=== PATIENT | male | born 1940 | race Caucasian/White ===

== ENCOUNTER 2018-11-20 06:54 | Inpatient (IN) | payer MEDICARE, OTHER ==
[~2018-11-20] VITALS: Ht 190.5 cm; Wt 134.3 kg
[2018-11-20] MEDS ORDERED: FISH OIL 1,001000 M2 PO (07:01)
[2018-11-20] MEDS ORDERED: PRINIVIL20 MG PO (07:01)
[2018-11-20] MEDS ORDERED: RED YEAST RICE600 MG PO (07:02)
[2018-11-20] MEDS ORDERED: ASPIR 8181 MG PO (07:02)
[2018-11-20] MEDS ORDERED: ZINC50 M2 PO (07:02)
[2018-11-20 07:03] VITALS: BP 171/86
[2018-11-20] MEDS ORDERED: CENTRUM SILVER1 EAC2 PO (07:03)
[2018-11-20 07:09] LABS: URINE BILIRUBIN NEGATIVE (Negative); URINE BLOOD TRACE (Negative); URINE CLARITY CLEAR; URINE COLOR YELLOW; URINE GLUCOSE-RANDOM NEGATIVE (Negative); URINE KETONES 1+ (Negative); URINE LEUKOCYTES-REFLEX NEGATIVE (Negative); URINE NITRITE-REFLEX NEGATIVE (Negative); URINE PROTEIN NEGATIVE (Negative); URINE SPECIFIC GRAVITY 1.015 (1.005-1.030); URINE UROBILINOGEN 0.2 E.U./dl (0.2-1.0)
[2018-11-20 07:36] LABS: ABSOLUTE BASOPHILS 0.1 thou/uL (0.0-0.2); ABSOLUTE EOSINOPHILS 0.3 thou/uL (0.0-0.7); ABSOLUTE LYMPHOCYTES 1.4 thou/uL (0.8-5.3); ABSOLUTE MONOCYTES 0.7 thou/uL (0.0-1.2); ABSOLUTE NEUTROPHILS 10.1 thou/uL (1.6-8.1); BASOPHILS 0.6 %; EOSINOPHILS 2.4 %; HEMOGLOBIN 15.1 gm/dL (14.0-18.0); MCH 29.5 pg (26.0-34.0); MCHC 33.5 g/dL (28.0-37.0); MONOCYTES 5.5 %; MPV 7.5 fl. (7.2-11.1); NUCLEATED RBCS 0 /100WBC; PLATELET COUNT* 259 thou/uL (150-400); POLYS 80.5 %; RBC 5.11 mil/uL (4.50-6.00); RDW-CV 13.6 % (10.5-14.5); WBC 12.5 thou/uL (4.0-11.0)
[2018-11-20 08:42] LABS: ANION GAP 7 mmol/L (7-16); BUN 10 mg/dL (7-18); CHLORIDE 95 mmol/L (98-107); CO2 32 mmol/L (21-32); CREATININE 0.8 mg/dL (0.6-1.3); GLUCOSE 188 mg/dL (70-99); SODIUM 134 mmol/L (136-145)
[2018-11-20 08:49] LABS: ALBUMIN 3.4 g/dL (3.4-5.0); ALKALINE PHOSPHATASE 101 U/L (46-116); LIPASE 175 U/L (73-393); SGOT 65 U/L (15-37); SGPT 91 U/L (30-65); TOTAL PROTEIN 7.5 g/dL (6.4-8.2); TROPONIN-I LEVEL <0.06 ng/mL (<0.06)
--- NOTE | 2018-11-20 09:17 | NUR ---
HUMA NOTIFIED UPON PT RETURN FROM CT. PT CONNECTED TO MONITOR AND O2
--- NOTE | 2018-11-20 10:24 | EKG ---
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: : 1940 Requested By: Yrn Pleitez Order Number: [id number] MD: Sebastian Chery Measurements Intervals [place] Rate: 84 P: 8 OK: 199 QRS: -22 QRSD: 92 T: 6 QT: 355 QTc: 420 Interpretive Statements Sinus rhythm Probable left atrial enlargement Left ventricular hypertrophy Inferior infarct, old Anterior Q waves, possibly due to LVH No previous ECG available for comparison Electronically Signed On 11-20-2018 10:24:43 [employer] by Sebastian Chery [email or web address] <ELECTRONICALLY SIGNED> By: Sebastian hCery MD, FACC 11/20/18 1024 0732 0732 Sebastian Chery MD, [facility] /EPI
[2018-11-20 10:30] VITALS: BP 171/86
[2018-11-20 10:53] VITALS: BP 165/87
--- NOTE | 2018-11-20 13:24 | NUR ---
PATIENT ARRIVED ON UNIT FROM ER AT 1030. COMPLETED ADMISSION ASSESSMENT AND HISTORY. HUNG FLUIDS. PATIENT DENIES PAIN AT THIS TIME. PATIENT WILL HAVE BRING UP ADVANCED DIRECTIVE PAPERWORK. EDUCATED PATIENT TO ROOM, CALL LIGHT, AND FALL RISKS. PATIENT VERBALIZED UNDERSTANDING. COMPLETED HOURLY ROUNDING, CALL LIGHT DIEGOIHN REACH.
[2018-11-20 15:34] VITALS: BP 151/82
--- NOTE | 2018-11-20 17:58 | NUR ---
PATIENT REMAINED ALERT AND ORIENTED X'S 4. VITAL SIGNS AND SPO2 STABLE. IV CLEAN FLUIDS INFUSING. PAIN WELL CONTROLLED WITH TYLENOL. TOLERATED CLEAR LIQUID DIET, NO NAUSEA AND VOMITING. COMPLETED HOURLY ROUNDING. CALL LIGHT WITHIN REACH. WILL CONTINUE TO MONITOR.
[2018-11-20 20:10] VITALS: BP 113/48
[2018-11-21 04:02] VITALS: BP 126/63
[2018-11-21 04:06] LABS: HEMATOCRIT 41.9 % (42.0-52.0); HEMOGLOBIN 13.9 gm/dL (14.0-18.0); MCH 29.4 pg (26.0-34.0); MCHC 33.2 g/dL (28.0-37.0); MCV 88.8 fL (80.0-100.0); MPV 7.1 fl. (7.2-11.1); NUCLEATED RBCS 0 /100WBC; PLATELET COUNT* 218 thou/uL (150-400); RBC 4.72 mil/uL (4.50-6.00); RDW-CV 13.9 % (10.5-14.5); WBC 14.4 thou/uL (4.0-11.0)
[2018-11-21 04:15] LABS: CALCIUM 8.6 mg/dL (8.5-10.1); CREATININE 0.9 mg/dL (0.6-1.3)
--- NOTE | 2018-11-21 05:24 | NUR ---
pt remained alert and oriented this shift. pt c/o pain and tylenol given as ordered. pt current diet order is regular for breakfast, however unsure what surgery plans for patient as npo diet order was made and surgery left no note. fall risk precautions in place. hourly rounding completed. will continue to monitor.
[2018-11-21 05:41] LABS: ABSOLUTE EOSINOPHILS 0.6 thou/uL (0.0-0.7); ABSOLUTE LYMPHOCYTES 1.3 thou/uL (0.8-5.3); ABSOLUTE MONOCYTES 0.6 thou/uL (0.0-1.2); ANISOCYTOSIS 1+; PLATELET ESTIMATE ADEQUATE; POIKILOCYTOSIS 1+
[2018-11-21 07:55] VITALS: BP 144/68
--- NOTE | 2018-11-21 12:47 | NUR ---
INITIAL ASSESSMENT: Pt evaluated for d/c planning needs. Reviewed chart and spoke with nurse and pt. Pt is alert and oriented. Pt lives with and was independent with ADL's prior to admission to the hospital. Pt plans on returning home on d/c from hospital. Will remain available to assist as needed.
[2018-11-21 17:01] VITALS: BP 142/70
--- NOTE | 2018-11-21 18:40 | NUR ---
ALERT AND ORIENTED X4. UP AD GABBIE IN ROOM. IV X2 PATENT AND SALINE LOCKED. PAIN BEING MANAGED WITH PO MEDICATION. DENIES NAUSEA. TOLERATING DIET. RN TRIED TITRATING OFF OXYGEN TODAY, PATIENT KEPT DROPPING INTO THE 80'S. CONTINUES TO BE ON 3L O2 AT THIS TIME AT 95%. VSS ON 3L O2. HOURLY ROUNDS HAVE BEEN MAINTAINED THROUGHOUT SHIFT. CALL LIGHT IS WITHIN REACH. NURSING WILL CONTINUE TO MONITOR.
--- NOTE | 2018-11-21 19:00 | NUR ---
RN REVIEWED AND AGREES WITH STUDENT NURSES CHARTING.
[2018-11-21 20:30] VITALS: BP 138/87
--- NOTE | 2018-11-22 06:10 | NUR ---
DEWAYNE HAS SLEPT WELL THROUGHOUT THE NIGHT. VSS ON 3L 02 VIA NASAL CANNULA. TYLENOL GIVEN FOR PAIN. IV IN RIGHT FOREARM-SL. PATIENT INSTRUCTED TO USE CALL LIGHT WHEN NEEDING ASSISTANCE. HOURLY ROUNDS MADE. WILL CONTINUE WITH PLAN OF CARE AND NURSING TO MONITOR.
[2018-11-22 08:05] VITALS: BP 147/71
[2018-11-22 10:30] LABS: ABSOLUTE LYMPHOCYTES 0.4 thou/uL (0.8-5.3); ABSOLUTE MONOCYTES 0.1 thou/uL (0.0-1.2); ABSOLUTE NEUTROPHILS 13.6 thou/uL (1.6-8.1); BASOPHILS 0.2 %; HEMATOCRIT 42.7 % (42.0-52.0); LYMPHOCYTES 3.1 %; MCH 29.5 pg (26.0-34.0); MCHC 32.7 g/dL (28.0-37.0); MCV 90.3 fL (80.0-100.0); MPV 7.8 fl. (7.2-11.1); NUCLEATED RBCS 0 /100WBC; PLATELET COUNT* 240 thou/uL (150-400); POLYS 95.7 %; RBC 4.73 mil/uL (4.50-6.00); RDW-CV 13.8 % (10.5-14.5); WBC 14.2 thou/uL (4.0-11.0)
[2018-11-22 10:36] LABS: CALCIUM 8.6 mg/dL (8.5-10.1); POTASSIUM 4.4 mmol/L (3.5-5.1)
--- NOTE | 2018-11-22 17:44 | NUR ---
PT REMAINED ALERT AND ORIENTED THIS SHIFT. PT IS ON 3 LITERS OF O2, UNABLE TO TITRATE DOWN, SAT AT 95%, ON ROOM AIR HE DESATS TO 80'S. PULOMONOLGY CONSULTED. IV LASIX ORDERED FOR 3 DOSES. PT AT FIRST DECLINED LASIX BUT HAD AGREED TO THE THREE DOSES. PT REFUSED TO ACCEPT ANY INUSLIN. FALL RISK PRECAUTIONS IN PLACE. HOURLY ROUNDING COMPLETED. WILL CONTINUE TO MONITOR.
[2018-11-22 20:00] VITALS: BP 132/64
[2018-11-23 02:12] LABS: GLYCOHEMOGLOBIN (HGB A1C) 8.4 % (4.8-5.6)
[2018-11-23 03:52] LABS: ABSOLUTE BASOPHILS 0.1 thou/uL (0.0-0.2); ABSOLUTE LYMPHOCYTES 0.6 thou/uL (0.8-5.3); ABSOLUTE MONOCYTES 0.3 thou/uL (0.0-1.2); ABSOLUTE NEUTROPHILS 11.4 thou/uL (1.6-8.1); BASOPHILS 0.9 %; HEMOGLOBIN 13.3 gm/dL (14.0-18.0); LYMPHOCYTES 4.5 %; MCH 29.8 pg (26.0-34.0); MCHC 33.3 g/dL (28.0-37.0); MCV 89.7 fL (80.0-100.0); MONOCYTES 2.8 %; MPV 8.1 fl. (7.2-11.1); NUCLEATED RBCS 0 /100WBC; PLATELET COUNT* 235 thou/uL (150-400); POLYS 91.8 %; RBC 4.46 mil/uL (4.50-6.00); RDW-CV 13.9 % (10.5-14.5); WBC 12.4 thou/uL (4.0-11.0)
[2018-11-23 04:15] LABS: CALCIUM 8.6 mg/dL (8.5-10.1); CREATININE 0.9 mg/dL (0.6-1.3); POTASSIUM 4.4 mmol/L (3.5-5.1)
--- NOTE | 2018-11-23 04:47 | NUR ---
PT REMAINED A&Ox4 DURING SHIFT. VITALS STABLE. RT DECREASED OX FROM 3L TO 2L, TOLERATED AT 97%. GLUCOSE WAS 319 AT BEDTIME, DENIED INSULIN. PAIN CONTROLLED WITH TYLENOL. IV R AC PATENT, SL. PT UP AD GABBIE. CALL LIGHT WITHIN REACH. HOURLY ROUNDING COMPLETE. WILL CONTINUE TO MONITOR.
[2018-11-23 08:00] VITALS: BP 153/82
--- NOTE | 2018-11-23 13:45 | CON ---
[address] [address] CONSULTATION Name: HARSHA NEWTON Room: [address] IN M.R.#: [id number] Admission: 11/20/18 Attend Phys: Doc Shahid MD Discharge: Date of : 42 Report #: [id number] THIS REPORT FOR: //name// CC: Doc Vega DATE OF SERVICE: 11/22/2018 REQUESTING PHYSICIAN: Dr. Shahid. INDICATION FOR CONSULTATION: Hypoxia/shortness of breath. HISTORY OF PRESENT ILLNESS: This is a 78-year-old gentleman with past medical history as mentioned below. He reports that he is a lifetime nonsmoker. The patient, however, does state that he has been sick for the last 6 weeks or so and has been having what he describes as a cold. When asked directly what symptoms that he has been having, he says that he has been short of breath, has been coughing, has been bringing up small amounts of white sputum, at times has had nasal discharge as well. Although swelling of lower extremities is not a complaint that he brought up initially, when asked directly he does report that he has had swelling of lower extremities for the last several weeks as well. The patient subsequently developed acute epigastric pain and presented to this hospital 2 days ago. He is suspected of having cholecystitis; however, due to his pulmonary status it was decided to optimize his pulmonary status first and consider surgery for cholecystitis later. At this time, the patient is on 3 liters nasal cannula, maintaining O2 saturation in the low 90s. His O2 saturation is noted to be in the mid 80s on room air. He continues to desaturate whenever oxygen is removed. Note that he was not on oxygen prior to this admission. He reports that he does have disturbed sleep at night. He sleeps on his sides and he does take daytime naps. REVIEW OF SYSTEMS: For 12 points is negative except as mentioned above. PAST MEDICAL HISTORY: Hypertension, hyperlipidemia. SOCIAL HISTORY: Lifetime nonsmoker. No known history of heavy alcohol use or illegal drug use. CURRENT MEDICATIONS: List in [employer] reviewed. HOME MEDICATIONS: List also in [employer] reviewed. PHYSICAL EXAMINATION: GENERAL: Alert, awake and oriented, does [place] [address] CONSULTATION Name: HARSHA NEWTON Room: [address]#: [id number] Admission: 11/20/18 Attend Phys: Doc Shahid MD Discharge: Date of : 42 Report #: [id number] this time. VITAL SIGNS: He is on 3 liters nasal cannula, maintaining O2 saturation in the low 90s, last recorded at 93%, blood pressure 147/71. His heart rate is 97, regular. His respiratory rate is 16. He is afebrile now with a temperature of 36.6. He did have a low grade fever of 37.6 yesterday. HEENT: There is no throat erythema. He has a narrow airway. NECK: Does not show raised JVP. CHEST: Minimal rales bilaterally at the bases. There are expiratory wheezes bilaterally. HEART: Regular. There is no murmur. ABDOMEN: Soft, nontender. EXTREMITIES: Lower extremities show 2+ edema bilaterally. There is no calf tenderness. LABORATORY DATA: The patient's CTA chest from yesterday is noted, it shows bilateral basilar fibrotic changes which are suspicious of usual interstitial pneumonitis. There is also a nodule, which is about 7 mm in size. The patient's CBC as well as chemistries are in [facility] and these are reviewed, significant hyperglycemia is noted. ASSESSMENT AND PLAN: 1. Hypoxia. The patient does have new onset oxygen needs. The full etiology of this remains to be defined. I do not see any significant infiltrates on the CT chest. It is, however, noted that he does have bilateral basilar scarring, which is suspicious of an interstitial lung disease. He does have some bronchospasm on exam. Also, he appears to be fluid overloaded. In addition, it appears that he has underlying obstructive sleep apnea. 2. Fluid overload. He does have edema. We will start Lasix. We will do an echo as well as venous Dopplers. 3. Bronchospasm. I do feel there is a component of this despite no previous history of obstructive lung disease. More Solu-Medrol is ordered. Continue DuoNeb. I note that his blood glucoses are elevated. I did cut down the Solu-Medrol dose, but it did continue. 4. Pulmonary fibrosis/possible interstitial lung disease. There are fibrotic changes at bilateral lung bases. These are suspicious for usual interstitial pneumonitis. This will need followup workup as an outpatient, which will include pulmonary function test. 5. Lung nodule. Will need followup CT chest. 6. Acute bronchitis. Despite lack of infiltrates there may be a component of acute bacterial bronchitis. The patient remains on Levaquin, which would cover. 7. Excessive daytime sleepiness. He had a sleep study many years ago. I recommend obtaining a repeat sleep study as an outpatient. I offered him BiPAP tonight, he declined. 8. Epigastric pain/possible acute cholecystitis. I would defer to the Surgery Service. [facility] [address] [place] [address] CONSULTATION Name: HARSHA NEWTON Room: [address] IN ..#: [id number] Admission: 11/20/18 Attend Phys: Doc Shahid MD Discharge: Date of : 42 Report #: [id number] Thanks for this consultation. <ELECTRONICALLY SIGNED> By: Efrain Infante MD 11/23/18 1345 1457 2108Aismael Infante MD /nt
[2018-11-23 16:20] VITALS: BP 141/86
--- NOTE | 2018-11-23 16:59 | NUR ---
ALERT AND ORIENTED X4. UP AD GABBIE IN ROOM. IV IS PATENT AND SALINE LOCKED. DENIES NEED FOR PAIN OR NAUSEA MEDICATION THIS SHIFT. TOLERATING DIET. PATIENT HAS BEEN ON ROOM AIR THROUGHOUT SHIFT, MONITORING CLOSELY. PATIENT IS ADAMITLY REFUSING INSULING THROUGHOUT SHIFT, DESPITE MULTIPLE ATTEMPTS OF EDUCATION. VSS ON ROOM AIR. HOURLY ROUNDS HAVE BEEN MAINTAINED THROUGHOUT SHIFT. CALL LIGHT IS WITHIN REACH. NURSING WILL CONTINUE TO MONITOR.
[2018-11-23 20:00] VITALS: BP 150/76
--- NOTE | 2018-11-24 04:40 | NUR ---
PT REMAINED A&Ox4 THROUGHOUT SHIFT. VITALS STABLE. OX 94% ON RA. UP AD GABBIE. IV R AC PATENT, SL. REFUSED HS INSULIN. OVERNIGHT PULSE OX/SLEEP STUDY STARTED AROUND 2300 AND WILL CONTINUE UNTIL 0600. CHEST XRAY ORDERED FOR AM, THEN POSSIBLE DC. CALL LIGHT WITHIN REACH. HOURLY ROUNDING COMPLETE. WILL CONTINUE TO MONITOR.
[2018-11-24 08:10] VITALS: BP 148/82
[2018-11-24 08:26] LABS: CALCIUM 9.1 mg/dL (8.5-10.1); MAGNESIUM 1.9 mg/dL (1.8-2.4); POTASSIUM 3.7 mmol/L (3.5-5.1)
[2018-11-24] MEDS ORDERED: VENTOLIN HFA 1818 GM INH (09:49)
[2018-11-24] MEDS ORDERED: PREDNISONE 10 M10 MG PO (09:51)
[2018-11-24] MEDS ORDERED: AUGMENTIN 875-1 EACH PO (09:52)
[2018-11-24 09:53] VITALS: BP 148/82
[2018-11-24] MEDS ORDERED: PROTONIX40 M1 PO (09:53)
[2018-11-24 09:54] VITALS: BP 148/82
[2018-11-24 09:57] VITALS: BP 148/82
[2018-11-24 09:59] VITALS: BP 148/82
--- NOTE | 2018-11-24 09:59 | NUR ---
CURING OVEN TENDER SPOKE TO THE PATIENT AND SPOUSE TO DISCUSS DISCHARGE PLANNING NEEDS AND HH AT D/C. PATIENT AND SPOUSE AGREEABLE TO HH AND INFORM THAT THEY WOULD LIKE HH WITH [facility]. CURING OVEN TENDER SPOKE TO [place] WITH [facility] TO INFORM OF THE REFERRAL, AND FAXED [facility] PATIENT'S FACEHSEET, H&P, AND D/C ORDERS. [facility] TO CONTACT THE PATIENT TO ARRANGE VISIT. PATIENT TO D/C HOME TODAY. CM WILL REMAIN AVIALABLE TO ASSIST AND FOLLOW NEEDED.
--- NOTE | 2018-11-24 18:06 | 2DMMODE ---
[place] [address] 2 D/M-MODE ECHOCARDIOGRAM Name: HARSHA NEWTON Room: [address] IN [facility]#: [id number] Admission: 11/20/18 Attend Phys: Doc Shahid, Discharge: Date of : 42 Date of Service: 11/24/18 1806 Report #: [id number] THIS REPORT FOR: //name// APPROVED REPORT Study performed: 11/24/2018 11:54:01 EXAM: Comprehensive 2D, Doppler, and color-flow Echocardiogram Patient Location: In-Patient Room #: [facility] Status: routine BSA: 2.59 HR: 89 bpm BP: 148/82 mmHg Other Information Study Quality: Good Indications Dyspnea 2D Dimensions IVSd: 12.26 (7-11mm) LVOT Diam: 21.99 (18-24mm) LVDd: 44.95 mm PWd: 11.78 (7-11mm) Ascending Ao: 33.93 (22-36mm) LVDs: 25.07 (25-40mm) Aortic Root: 29.08 mm Volumes Left Atrial Volume (Systole) LA ESV Index: 27.00 mL/m2 Aortic Valve AoV Peak Jose Guadalupe.: 1.53 m/s AO Peak Gr.: 9.41 mmHg LVOT Max P.04 mmHg AO Mean Gr.: 5.80 mmHg LVOT Mean P.82 mmHg LVOT Max V: 1.50 m/s AO V2 VTI: 31.72 cm LVOT Mean V: 1.02 m/s NITZA (VTI): 3.73 cm2 LVOT V1 VTI: 31.19 cm Mitral Valve E/A Ratio: 0.80 MV Decel. Time: 248.63 ms MV E Max Jose Guadalupe.: 0.95 m/s MV PHT: 72.10 [place] [address] 2 D/M-MODE ECHOCARDIOGRAM Name: HARSHA NEWTON Room: [address] IN .R.#: [id number] Admission: 11/20/18 Attend Phys: Doc Shahid, Discharge: Date of : 42 Date of Service: 11/24/18 1806 Report #: [id number] MVA (PHT): 3.05 cm2 TDI E/Lateral E': 11.88 E/Medial E': 11.88 Medial E' Jose Guadalupe.: 0.08 m/s Lateral E' Jose Guadalupe.: 0.08 m/s Pulmonary Valve PV Peak Jose Guadalupe.: 1.19 m/s PV Peak Gr.: 5.62 mmHg Tricuspid Valve RAP Estimate: 5.00 mmHg TR Peak Gr.: 29.98 mmHg RVSP: 34.98 mmHg PA Pressure: 34.98 mmHg Left Ventricle The left ventricle is normal size. There is normal LV segmental wall motion. Mild concentric left ventricular hypertrophy. Left ventricular systolic function is normal. LVEF is >70%. Grade I - abnormal relaxation pattern. Right Ventricle The right ventricle is normal size. The right ventricular systolic function is normal. Atria The left atrium size is normal. The right atrium size is normal. Aortic Valve The aortic valve is normal in structure. No aortic regurgitation is present. There is no aortic valvular stenosis. Mitral Valve There is mitral annular calcification. Mild mitral regurgitation. No evidence of mitral valve stenosis. Tricuspid Valve The tricuspid valve is normal in structure. Mild tricuspid regurgitation. Pulmonic Valve The pulmonary valve is normal in structure. Mild pulmonic [place] [address] 2 D/M-MODE ECHOCARDIOGRAM Name: HARSHA NEWTON Room: [address]#: [id number] Admission: 11/20/18 Attend Phys: Doc Shahid, Discharge: Date of : 42 Date of Service: 11/24/18 1806 Report #: [id number] The aortic root is normal in size. IVC is normal in size and collapses >50% with inspiration. Pericardium There is no pericardial effusion. <Conclusion> The left ventricle is normal size. Mild concentric left ventricular hypertrophy. Left ventricular systolic function is normal. LVEF is >70%. Grade I - abnormal relaxation pattern. Mild mitral regurgitation. There is mitral annular calcification. Mild tricuspid regurgitation. Mild pulmonic regurgitation. <ELECTRONICALLY SIGNED> By: Paul Ham MD, FACC 11/24/181805 05 05 Paul Ham MD, FACC /INF
--- NOTE | 2018-11-24 18:50 | NUR ---
PT GIVEN PRESCRIPTIONS, CARE NOTES, AND DISCHARGE INSTRUCTIONS. ECHO WAS COMPLETED AND WAS NEGATIVE. IV REMOVED. PT LEFT TO HOME WITH SPOUSE WALKING WITH NURSING STAFF. FALL RISK PRECAUTIONS IN PLACE. HOURLY ROUNDING COMPELTED.
[2018-11-26 15:11] LABS: ANTI-DNA SCREEN <1 IU/mL (0-9); ANTI-RNP <0.2 AI (0.0-0.9)
== END 2018-11-24 18:52 | disposition home health service (06) | DRG 177 ==
LOC: M.ERS 06:54 → M.ORTHSURG 09:50 → M.TBA-ER 09:50 → M.ORTHSURG 10:38
PROVIDERS: Emergency Medicine Emergency Medical Services; Internal Medicine Critical Care Medicine; ADMIT Internal Medicine
DX: J15.6 Pneumonia due to other Gram-negative bacteria (principal); J96.01 Acute respiratory failure with hypoxia; R65.11 Systemic inflammatory response syndrome (SIRS) of non-infectious origin with acute organ dysfunction; K81.0 Acute cholecystitis; I10 Essential (primary) hypertension; E78.5 Hyperlipidemia, unspecified; J98.01 Acute bronchospasm; J84.10 Pulmonary fibrosis, unspecified; G47.33 Obstructive sleep apnea (adult) (pediatric); R91.1 Solitary pulmonary nodule; E11.65 Type 2 diabetes mellitus with hyperglycemia; E66.9 Obesity, unspecified; Z68.37 Body mass index [BMI] 37.0-37.9, adult; Z79.82 Long term (current) use of aspirin; Z79.899 Other long term (current) drug therapy; Z88.8 Allergy status to other drugs, medicaments and biological substances; Z80.1 Family history of malignant neoplasm of trachea, bronchus and lung; Z83.3 Family history of diabetes mellitus

== ENCOUNTER 2019-04-13 14:43 | Emergency (ER) | payer MEDICARE, OTHER ==
[~2019-04-13] VITALS: Ht 193 cm; Wt 127.0 kg
[~2019-04-13 14:43] MED LIST: ASPIR 8181 MG PO; AUGMENTIN 875-1 EACH PO; CENTRUM SILVER1 EAC2 PO; FISH OIL 1,001000 M2 PO; PREDNISONE 10 M10 MG PO; PRINIVIL20 MG PO; PROTONIX40 M1 PO; RED YEAST RICE600 MG PO; VENTOLIN HFA 1818 GM INH; ZINC50 M2 PO
[2019-04-13] MEDS ORDERED: IBUPROFEN 600600 M1 PO (14:57)
[2019-04-13 16:13] VITALS: BP 160/78
== END 2019-04-13 16:13 | disposition home or self-care (01) ==
LOC: M.ERS 14:43
DX: S60.211A Contusion of right wrist, initial encounter (principal); I10 Essential (primary) hypertension; Z88.8 Allergy status to other drugs, medicaments and biological substances; W01.0XXA Fall on same level from slipping, tripping and stumbling without subsequent striking against object, initial encounter; Y93.89 Activity, other specified; Y92.89 Other specified places as the place of occurrence of the external cause; Y99.8 Other external cause status

== ENCOUNTER → 2019-06-22 | Outpatient (CLI) | payer MEDICARE, OTHER ==
[~2019-06-22] MED LIST changes: +IBUPROFEN 600600 M1 PO
[2019-06-22 09:49] LABS: CALCIUM 9.2 mg/dL (8.5-10.1); CREATININE 1.1 mg/dL (0.6-1.3); POTASSIUM 4.9 mmol/L (3.5-5.1)
== END ==
LOC: M.LAB 09:04
PROVIDERS: Nurse Practitioner
DX: I10 Essential (primary) hypertension (principal)

== ENCOUNTER 2020-03-14 19:47 | Inpatient (IN) | payer MEDICARE, OTHER ==
[~2020-03-14] VITALS: Ht 190.5 cm; Wt 127.0 kg
[2020-03-14 19:55] VITALS: BP 121/78
[2020-03-14 20:14] LABS: ABSOLUTE BASOPHILS 0.1 thou/uL (0.0-0.2); ABSOLUTE LYMPHOCYTES 1.8 thou/uL (0.8-5.3); ABSOLUTE MONOCYTES 0.5 thou/uL (0.0-1.2); ABSOLUTE NEUTROPHILS 7.5 thou/uL (1.6-8.1); BASOPHILS 0.8 %; EOSINOPHILS 0.2 %; HEMATOCRIT 46.9 % (42.0-52.0); HEMOGLOBIN 16.4 gm/dL (14.0-18.0); LYMPHOCYTES 17.9 %; MCH 30.2 pg (26.0-34.0); MCHC 34.9 g/dL (28.0-37.0); MCV 86.5 fL (80.0-100.0); MONOCYTES 5.2 %; MPV 8.1 fl. (7.2-11.1); NUCLEATED RBCS 0 /100WBC; PLATELET COUNT* 231 thou/uL (150-400); POLYS 75.9 %; RBC 5.42 mil/uL (4.50-6.00); RDW-CV 13.9 % (10.5-14.5); WBC 9.9 thou/uL (4.0-11.0)
[2020-03-14 20:25] LABS: INR 1.1
[2020-03-14 20:26] LABS: CALCIUM 8.8 mg/dL (8.5-10.1); CREATININE 0.8 mg/dL (0.6-1.3); POTASSIUM 3.6 mmol/L (3.5-5.1)
[2020-03-14 20:36] LABS: ALBUMIN 3.6 g/dL (3.4-5.0); MAGNESIUM 1.4 mg/dL (1.8-2.4); TOTAL BILIRUBIN 0.9 mg/dL (<0.1-1.0); TOTAL PROTEIN 7.6 g/dL (6.4-8.2)
[2020-03-14 20:52] LABS: BE 2.6 mmol/L (-2 to +3); PO2 63.3 mmHg (75.0-100.0); pH 7.376 (7.340-7.450)
[2020-03-14 20:56] LABS: PCO2 50.4 mmHg (35.0-45.0)
[2020-03-14 23:21] VITALS: BP 132/80
[2020-03-15 00:30] VITALS: BP 132/71
[2020-03-15 04:00] VITALS: BP 159/74
[2020-03-15 04:52] LABS: CALCIUM 8.1 mg/dL (8.5-10.1); POTASSIUM 3.7 mmol/L (3.5-5.1)
[2020-03-15 05:00] VITALS: BP 126/65
[2020-03-15 07:50] VITALS: BP 128/74
[2020-03-15 09:05] LABS: CHOLESTEROL 214 mg/dL (<200); HDL CHOLESTEROL 29 mg/dL (>40); LDL CHOLESTEROL 149 mg/dL (<100); SERUM ASSESSMENT Clear; TC:HDL 7.4 Ratio (Not establshd); TRIGLYCERIDE 180 mg/dL (<150); VLDL 36 mg/dL (<40)
[2020-03-15 12:00] VITALS: BP 111/72
--- NOTE | 2020-03-15 15:00 | NUR ---
CM spoke with Pt's via phone. Pt is normally active and independent. No DME. Hx of [facility]. No hx of SNF. states that Pt saw his inspector subassemblies last year and was recommended home o2, Pt declined at that time. and Pt aware that Pt may need o2 at dc, Pt currently on 4L. Per , Pt would agree to home o2 at dc if needed. Pt/ check his sats at home, states that Pt normally vascillates between 88-91%. Pt to have a stress today. Following for dc needs.
--- NOTE | 2020-03-15 15:27 | EKG ---
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 Support: RAJAT : 1940 Requested By: Maribell Dhillon Order Number: [id number] MD: Guillaume Melendez Measurements Intervals [place] Rate: 67 P: 15 RI: 218 QRS: -20 QRSD: 93 T: -73 QT: 395 QTc: 417 Interpretive Statements Sinus rhythm Borderline prolonged RI interval Left ventricular hypertrophy Inferior infarct, age indeterminate Compared to ECG 11/20/2018 07:32:35 Myocardial infarct finding still present Electronically Signed On 03-15-2020 15:25:41 CDT by Guillaume Melendez [email or web address] <ELECTRONICALLY SIGNED> By: Guillaume Melendez MD, [facility] 03/15/20 1525 2243 2243 Guillaume Melendez MD, [facility] /EPI
--- NOTE | 2020-03-15 15:27 | EKG ---
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: [place] : 1940 Requested By: Josiah Strauss Order Number: [id number] MD: Guillaume Melendez Measurements Intervals [place] Rate: 78 P: 38 NV: 210 QRS: -29 QRSD: 93 T: 12 QT: 378 QTc: 431 Interpretive Statements Sinus rhythm Probable left atrial enlargement Inferior infarct, old Compared to ECG 11/20/2018 07:32:35 Left ventricular hypertrophy no longer present Myocardial infarct finding still present Electronically Signed On 03-15-2020 15:25:25 CDT by Guillaume Melendez [email or web address] <ELECTRONICALLY SIGNED> By: Guillaume Melendez MD, [facility] 03/15/20 1525 55 55 Guillaume Melendez MD, [facility] /EPI
--- NOTE | 2020-03-15 15:28 | EKG ---
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 : 1940 Requested By: Josiah Strauss Order Number: [id number] Joe MD: Guillaume Melendez Measurements Intervals [place] Rate: 63 P: 49 OK: 232 QRS: -12 QRSD: 90 T: -1 QT: 428 QTc: 439 Interpretive Statements Sinus rhythm Prolonged [place] interval Inferior infarct, old Compared to ECG 11/20/2018 07:32:35 First degree AV block now present Left ventricular hypertrophy no longer present Myocardial infarct finding still present Electronically Signed On 03-15-2020 15:26:41 CDT by Guillaume Melendez [email or web address] <ELECTRONICALLY SIGNED> By: Guillaume Melendez MD, [facility] 03/15/20 1526 0458 0458 Guillaume Melendez MD, [facility] /EPI
[2020-03-15 16:00] VITALS: BP 130/73
--- NOTE | 2020-03-15 18:30 | NUR ---
ASSUMED CARE OF PATIENT AT APPROX 0730. ALERT AND ORIENTED X4. ASSESSMENT COMPLETED AND CHARTED. VSS ON 4 LITERS 02, TITRATED TO ROOM AIR WITH STABLE 02 SAT. FLUIDS INFUSED ORDERED. PATIENT COMPLAINED OF HEADACHE, ADDRESSED WITH FENTANYL THIS AM. NO OTHER COMPLAITS OF PAIN THIS SHIFT. PATIENT UP AD GABBIE IN THE ROOM. CALL LIGHT WITHIN REACH. HOURLY ROUNDS COMPLETED. WILL CONTINUE WITH PLAN OF CARE.
[2020-03-16] VITALS: BP 148/76
[2020-03-16 02:07] LABS: GLYCOHEMOGLOBIN (HGB A1C) 8.1 % (4.8-5.6)
[2020-03-16 04:00] VITALS: BP 126/72
[2020-03-16 04:48] LABS: HEMATOCRIT 41.3 % (42.0-52.0); MCH 29.8 pg (26.0-34.0); MCHC 34.5 g/dL (28.0-37.0); MCV 86.3 fL (80.0-100.0); MPV 7.9 fl. (7.2-11.1); RBC 4.78 mil/uL (4.50-6.00); RDW-CV 13.6 % (10.5-14.5); WBC 6.4 thou/uL (4.0-11.0)
[2020-03-16 05:05] LABS: HEMOGLOBIN 14.2 gm/dL (14.0-18.0)
[2020-03-16 05:07] LABS: ALBUMIN 2.8 g/dL (3.4-5.0); CALCIUM 7.8 mg/dL (8.5-10.1); CREATININE 0.8 mg/dL (0.6-1.3); POTASSIUM 3.5 mmol/L (3.5-5.1); TOTAL BILIRUBIN 0.5 mg/dL (<0.1-1.0); TOTAL PROTEIN 5.9 g/dL (6.4-8.2)
--- NOTE | 2020-03-16 05:11 | NUR ---
PATIENT HAS SLEPT WELL THROUGHOUT THE NIGHT. VSS ON 4L 02 VIA NASAL CANNULA. NO C/O PAIN. NO N/V. MEDICATIONS GIVEN ORDERED AND CHARTED. ASSESSMENT CHARTED. PATIENT IS UP AD-GABBIE. PATIENT HAS REMAINED NPO SINCE MIDNIGHT D/T SCHEDULED STRESS TEST TODAY. IV IN RIGHT AC-NS @ 100ML/HR. PATIENT INSTRUCTED TO USE CALL LIGHT WHEN NEEDING ASSISTANCE. HOURLY ROUNDS MADE. WILL CONTINUE WITH PLAN OF CARE AND NURSING TO MONITOR.
[2020-03-16 08:00] VITALS: BP 108/69
[2020-03-16 12:00] VITALS: BP 134/63
[2020-03-16 12:32] LABS: BE 0.4 mmol/L (-2 to +3); PCO2 47.9 mmHg (35.0-45.0); PO2 81.9 mmHg (75.0-100.0)
--- NOTE | 2020-03-16 13:28 | NUR ---
ASSUMED CARE OF PATIENT THIS AM AT 0730. PATIENT IS ALERT AND ORIENTED X 4. HE WAS NPO P MN FOR STRESS TEST. PATIENT TAKEN TO CARDIOLOGY FOR STRESS TEST AND RETURNED. IN TO ROUND. ORDERS WRITTEN FOR COVID TESTING AND PULMONARY CONSULT. PATIENT NEEDS TO BE TRANSFERRED TO COVID UNIT. IV FLUIDS DISCONTINUED. PATIENT RECIEVED CT SCAN PRIOR TO RETURNING TO THE UNIT. REPORT CALLED.
--- NOTE | 2020-03-16 14:49 | NUR ---
Per Dr, Pt hypoxic today, covid test ordered. Pt transferred to room 110
--- NOTE | 2020-03-16 16:30 | CARDNUC ---
[place] [address] CARDIAC NUCLEAR IMAGING REPORT Name: HARSHA NEWTON Room: [address] IN [facility]#: [id number] Admission: 03/14/20 Attend Phys: Estuardo Tanner Discharge: Date of : 42 Date of Service: 03/16/20 1628 Report #: [id number] THIS REPORT FOR: cc: Alfredo Corbin MD, Bruce D. MD Liston, Michael J. MD [facility] ~ APPROVED REPORT Study performed: 03/16/2020 08:50:40 Exam: Nuclear Stress Test Indication: Troponin elevation Patient Location: In-Patient Room #: 230 Stress Tech: Lynn Pratt Stress Nurse: Merry Crain RN Ht: 6 ft 3 in Wt: 280 lbs BSA: 2.53 m2 BMI: 34.99 Medical History Medical History: Hyperlipidemia, HTN, Diabetes Medications: lisinopril Allergies: niacin Cardiac Risk Factors: Age, HTN, Hyperlipidemia, DM Exercise History: Sedentary Stress Test Details Stress Test: Pharmacologic stress testing performed using 0.4 mg of regadenoson per 5 mL given IV over 10 seconds. Reason for pharmacologic stress test: physical limitation. HR Resting HR: 60 bpm Max Heart Rate (APMHR): 142 bpm Max HR Achieved: 75 bpm Target HR (85% APMHR): 120 bpm % of APMHR: 52 Recovery HR: 69 bpm BP Resting BP: 144/80 mmHg Max BP: 151/72 mmHg ECG Resting ECG: [place] [address] CARDIAC NUCLEAR IMAGING REPORT Name: HARSHA NEWTON Room: [address]#: [id number] Admission: 03/14/20 Attend Phys: Estuardo Tanner Discharge: Date of : 42 Date of Service: 03/16/20 1628 Report #: [id number] Stress ECG: Sinus Rhythm ST Change: None Arrhythmia: None Recovery ECG: Sinus Rhythm Recovery ST Change: None Recovery Arrhythmia: None Clinical Reason for Termination: Completed protocol The patient tolerated Lexiscan infusion without significant cardiac symptoms. Nurse Comments pt has unsteady gait and is not abale to walk on treadmill Stress ECG Conclusion The baseline twelve-lead EKG shows sinus rhythm without significant ST segment or T wave abnormalities. EKGs obtained during and post Lexiscan infusion show sinus rhythm with no significant ST segment or T wave changes when compared to baseline. NM EXAM: Myocardial Perfusion REST/STRESS Imaging Protocol: Rest Tc-99m/Stress Tc-99m 2 days Resting Data Rest SPECT myocardial perfusion imaging was performed in supine position 30 minutes following the intravenous injection of 32.7 mCi of Tc-99m Sestamibi. Time of rest injection: 14:10 Date: 03/15/2020 The images were gated to evaluate regional wall motion and calculate left ventricular ejection fraction. Administration Route: IV Administration Site: Right AC Pharmacologic Stress Pharmacologic stress test was performed by injecting Regadenoson 0.4 mg IV push followed by the intravenous injection of 32.7 mCi of Tc-99m Sestamibi. Time of stress injection: 09:00 Date: 03/16/2020 Administration Route: IV Administration Site: Right AC Heart Rate at time of stress injection: 75 bpm. Gated Stress SPECT was performed 40 minutes after stress injection. The images were gated to evaluate regional wall motion and calculate left [place] [address] CARDIAC NUCLEAR IMAGING REPORT Name: HARSHA NEWTON Room: [address]#: [id number] Admission: 03/14/20 Attend Phys: Estuardo Tanner Discharge: Date of : 42 Date of Service: 03/16/20 1628 Report #: [id number] Study Quality Study: Good Artifact: No artifact Study Data At rest, the left ventricular ejection fraction was 70%.. Post stress, the left ventricular ejection was 76%.. TID = 0.93. Perfusion Perfusion studies obtained at rest and post Lexiscan stress showed uniform uptake of the radioisotope throughout the myocardium. There were no defects to suggest infarct or ischemia. Wall Motion Normal left ventricular wall motion. Nuclear Conclusion ECG Findings: negative for ischemia Clinical Findings: negative for ischemia Nuclear Findings: negative for ischemia Exercise Capacity: not assessed Left Ventricular Function: normal Risk Study: low Myocardial perfusion images show no defect to suggest infarct or ischemia. Left ventricular systolic function is normal on gated studies. This is a low risk study. <Conclusion> The baseline twelve-lead EKG shows sinus rhythm without significant ST segment or T wave abnormalities. EKGs obtained during and post Lexiscan infusion show sinus rhythm with no significant ST segment or T wave changes when compared to baseline. <ELECTRONICALLY SIGNED> By: Paul Ham MD, FACC 03/16/20 1628 1628 1628 Paul Ham MD, FACC /INF
--- NOTE | 2020-03-16 16:37 | NUR ---
I ASSUMED CARE OF THE PATIENT AT A TRANSFER AT 1400. HE IS ALERT AND ORIENTED X4 AND IS UP WITH SBA. BED IS IN THE LOW LOCKED POSITION AND CALL LIGHT IS IN REACH. HOURLY ROUNDING WAS COMPLETED AND PATIENT NEED ARE MET. PAIN IS DENIED. COVID SWAB WAS COLLECTED AND DELIVERED TO LAB. WAS CONTACTED AND UPDATED ON THE PATIENT'S CONDITION. I AGREE WITH THE PREVIOUS NURSES ASSESSMENT. PATIENT AND FAMILY ARE FRUSTRATED THAT THE PATIENT WAS NOT SWABBED FOR COVID UPON ADMISSION. ISOLATION IS MAINTAINED. WILL CONTINUE TO MONITOR.
[2020-03-16 16:52] VITALS: BP 132/61
[2020-03-16 18:34] LABS: URINE BILIRUBIN NEGATIVE (Negative); URINE BLOOD NEGATIVE (Negative); URINE CLARITY CLEAR; URINE COLOR YELLOW; URINE GLUCOSE-RANDOM NEGATIVE (Negative); URINE KETONES NEGATIVE (Negative); URINE LEUKOCYTES-REFLEX NEGATIVE (Negative); URINE NITRITE-REFLEX NEGATIVE (Negative); URINE PROTEIN NEGATIVE (Negative); URINE UROBILINOGEN 0.2 E.U./dl (0.2-1.0)
--- NOTE | 2020-03-16 19:22 | NUR ---
AFTER SPEAKING WITH THE PATIENT'S , HUBER. SHE WANTED TO LET ME KNOW THAT THE PATIENT WAS VOMITING A LOT AFTER EATING LEMON MUSHROOMS ON MOTHER'S DAY. HIS FRIEND, WHO ATE THE SAME THING, WAS ALSO VERY ILL. THEY WOULD LIKE TO REQUEST AN ORDER FOR HOME OXYGEN TO HOLD THEM OVER UNTIL THEIR PULMONOLOGY FOLLOW UP OUTPATIENT THAT HAS BEEN PUSHED TO JUNE.
[2020-03-16 20:00] VITALS: BP 153/73
--- NOTE | 2020-03-17 01:20 | NUR ---
PT ALERT ORIENTED. UP AD GABBIE IN ROOM. O2 AT 3 LITERS NC. TELEMETRY SHOWS SR/SB 1ST DEGREE AVB. DENIES PAIN. WCTM
[2020-03-17 05:13] LABS: HEMATOCRIT 39.8 % (42.0-52.0); HEMOGLOBIN 13.6 gm/dL (14.0-18.0); MCH 29.8 pg (26.0-34.0); MCHC 34.1 g/dL (28.0-37.0); MCV 87.4 fL (80.0-100.0); MPV 8.4 fl. (7.2-11.1); RBC 4.55 mil/uL (4.50-6.00); RDW-CV 14.1 % (10.5-14.5); WBC 5.8 thou/uL (4.0-11.0)
[2020-03-17 05:26] LABS: ALBUMIN 2.8 g/dL (3.4-5.0); CALCIUM 7.8 mg/dL (8.5-10.1); CREATININE 0.8 mg/dL (0.6-1.3); MAGNESIUM 1.8 mg/dL (1.8-2.4); POTASSIUM 3.4 mmol/L (3.5-5.1); TOTAL BILIRUBIN 0.5 mg/dL (<0.1-1.0)
[2020-03-17 08:57] VITALS: BP 137/61
[2020-03-17 11:47] VITALS: BP 144/63
--- NOTE | 2020-03-17 14:25 | NUR ---
SW continuing to follow. Pulmonary consulted and COVID pending. Expecting needs for supplemental oxygen at dc. SW to discuss with pt/family and arrange when/if needed.
--- NOTE | 2020-03-17 16:06 | NUR ---
ASSUMED CARE OF PT AROUND 0730 THIS AM. REFER TO ASSESSMENT. PT TITRATED TO 2L/NC AND TOLERATING WELL. PULMONARY PHYSICIAN CONSULTED THIS SHIFT. NO OTHER CONCERNS AT THIS TIME.CLWR. WCTM.
[2020-03-17 16:55] VITALS: BP 152/74
[2020-03-17 20:02] VITALS: BP 169/79
[2020-03-18 00:03] VITALS: BP 137/71
[2020-03-18 04:27] VITALS: BP 128/65
[2020-03-18 06:00] LABS: CALCIUM 8.4 mg/dL (8.5-10.1); CREATININE 0.7 mg/dL (0.6-1.3); POTASSIUM 3.4 mmol/L (3.5-5.1)
--- NOTE | 2020-03-18 07:34 | NUR ---
PT SLEPT ON AND OFF IN RECLINER THIS SHIFT. ASSESSMENT DOCUMENTED. MEDS GIVEN PER E-MAR. IV PATENT. NO REPORTS OF PAIN THIS SHIFT. PT ON 2L O2 NC. ISOLATION MAINTAINED. DR NOTIFIED OF COVID-19 RESULTS, ORDER TO DC ISOLATION RECIEVED. WILL CONTINUE WITH PLAN OF CARE.
[2020-03-18 08:00] VITALS: BP 115/82
[2020-03-18 13:00] VITALS: BP 115/82
[2020-03-18 15:00] VITALS: BP 147/79
[2020-03-18 16:02] VITALS: BP 115/82
--- NOTE | 2020-03-18 17:00 | NUR ---
ASSUMED PT CARE AT 0730. ASSESSMENT COMPLETED CHARTED. ABLE TO MAKE NEEDS KNOWN. UP AD GABBIE IN ROOM. NO C/O PAIN OR DISCOMFORT. OXYGEN ORDERED AND RECIEVED AROUND 1600. PT LEFT TO WIFES CAR AROUND 1630 WITH OXYGEN TANK AND BELONGINGS. DISCHARGE PAPERWORK WENT OVER WITH NO QUESTIONS. IV AND HEART MONITOR REMOVED.
== END 2020-03-18 16:45 | disposition home or self-care (01) | DRG 865 ==
LOC: M.ERS 19:47 → M.2W 22:40 → M.TBA-ER 22:40 → M.2W 23:39 → M.ORTHSURG 03-16 13:59
PROVIDERS: Emergency Medicine; Internal Medicine; Psychiatry & Neurology Neurology; Registered Nurse; ADMIT Family Medicine
DX: B34.9 Viral infection, unspecified (principal); J12.9 Viral pneumonia, unspecified; J96.21 Acute and chronic respiratory failure with hypoxia; J96.22 Acute and chronic respiratory failure with hypercapnia; E44.0 Moderate protein-calorie malnutrition; E87.2 Acidosis; I24.8 Other forms of acute ischemic heart disease; J98.11 Atelectasis; E11.9 Type 2 diabetes mellitus without complications; I10 Essential (primary) hypertension; E66.01 Morbid (severe) obesity due to excess calories; E78.5 Hyperlipidemia, unspecified; J84.10 Pulmonary fibrosis, unspecified; G43.909 Migraine, unspecified, not intractable, without status migrainosus; Z88.8 Allergy status to other drugs, medicaments and biological substances; Z68.35 Body mass index [BMI] 35.0-35.9, adult; Z79.899 Other long term (current) drug therapy; Z80.8 Family history of malignant neoplasm of other organs or systems; Z83.3 Family history of diabetes mellitus; Z83.2 Family history of diseases of the blood and blood-forming organs and certain disorders involving the immune mechanism; Z82.49 Family history of ischemic heart disease and other diseases of the circulatory system; Z03.818 Encounter for observation for suspected exposure to other biological agents ruled out

== ENCOUNTER → 2020-04-08 | Outpatient (CLI) | payer MEDICARE, OTHER | LOC: M.CT 11:19 | DX: J84.10 Pulmonary fibrosis, unspecified (principal) ==

== ENCOUNTER → 2020-07-22 | Outpatient (CLI) | payer MEDICARE, OTHER ==
[2020-07-22 10:58] LABS: CALCIUM 9.1 mg/dL (8.5-10.1); POTASSIUM 4.1 mmol/L (3.5-5.1)
== END ==
LOC: M.RAD 10:18
PROVIDERS: ATTEND Internal Medicine Cardiovascular Disease
DX: J98.4 Other disorders of lung (principal); I70.0 Atherosclerosis of aorta; I51.7 Cardiomegaly; R06.02 Shortness of breath; R06.09 Other forms of dyspnea; R60.9 Edema, unspecified; Q25.46 Tortuous aortic arch

== ENCOUNTER → 2020-08-02 | Outpatient (CLI) | payer MEDICARE, OTHER ==
[2020-08-02 12:12] LABS: CALCIUM 8.9 mg/dL (8.5-10.1); CREATININE 1.3 mg/dL (0.6-1.3); POTASSIUM 4.2 mmol/L (3.5-5.1)
== END ==
LOC: M.LAB 11:40
PROVIDERS: ATTEND Nurse Practitioner
DX: I10 Essential (primary) hypertension (principal)

== ENCOUNTER → 2020-08-09 | Outpatient (CLI) | payer MEDICARE, OTHER ==
--- NOTE | 2020-08-09 12:33 | 2DMMODE ---
[place] [address] 2 D/M-MODE ECHOCARDIOGRAM Name: HARSHA NEWTON Room: [facility]#: [id number] Admission: 08/09/20 Attend Phys: Paul Ham, Discharge: Date of : 42 Date of Service: 08/09/20 1232 Report #: [id number] THIS REPORT FOR: cc: Zabrina Curran MD, Kandice L. MD Blick, David R. MD [facility] ~ APPROVED REPORT Study performed: 08/09/2020 10:42:45 EXAM: Comprehensive 2D, Doppler, and color-flow Echocardiogram Patient Location: Out-Patient BSA: 2.58 HR: 69 bpm BP: 142/84 mmHg Other Information Study Quality: Fair Indications Congestive Heart Failure 2D Dimensions IVSd: 12.22 (7-11mm) LVOT Diam: 20.15 (18-24mm) LVDd: 45.92 mm PWd: 12.37 (7-11mm) Ascending Ao: 37.48 (22-36mm) LVDs: 25.34 (25-40mm) Aortic Root: 28.39 mm Volumes Left Atrial Volume (Systole) LA ESV Index: 17.50 mL/m2 Aortic Valve AoV Peak Jose Guadalupe.: 1.30 m/s AO Peak Gr.: 6.71 mmHg LVOT Max P.57 mmHg AO Mean Gr.: 3.83 mmHg LVOT Mean P.34 mmHg LVOT Max V: 1.07 m/s AO V2 VTI: 24.96 cm LVOT Mean V: 0.71 m/s NITZA (VTI): 2.45 cm2 LVOT V1 VTI: 19.19 cm Mitral Valve E/A Ratio: 0.55 [place] [address] 2 D/M-MODE ECHOCARDIOGRAM Name: HARSHA NEWTON Room: [facility]#: [id number] Admission: 08/09/20 Attend Phys: Paul Ham, Discharge: Date of : 42 Date of Service: 08/09/20 1232 Report #: [id number] MV Decel. Time: 343.94 ms MV E Max Jose Guadalupe.: 0.50 m/s MV PHT: 99.74 ms MVA (PHT): 2.21 cm2 TDI E/Lateral E': 4.17 E/Medial E': 7.14 Medial E' Jose Guadalupe.: 0.07 m/s Lateral E' Jose Guadalupe.: 0.12 m/s Pulmonary Valve PV Peak Jose Guadalupe.: 0.92 m/s PV Peak Gr.: 3.36 mmHg Tricuspid Valve RAP Estimate: 5.00 mmHg TR Peak Gr.: 21.57 mmHg RVSP: 26.57 mmHg PA Pressure: 26.57 mmHg Left Ventricle The left ventricle is normal size. There is normal LV segmental wall motion. Mild concentric left ventricular hypertrophy. Left ventricular systolic function is normal. The left ventricular ejection fraction is within the normal range. LVEF is 55-60%. Grade I - abnormal relaxation pattern. Right Ventricle The right ventricle is normal size. The right ventricular systolic function is normal. Atria The left atrium size is normal. The right atrium size is normal. Aortic Valve The Aortic valve is sclerotic. Mild aortic regurgitation. There is no aortic valvular stenosis. Mitral Valve Mild mitral annular calcification. The mitral valve is normal in structure. There is no mitral valve regurgitation noted. No evidence of mitral valve stenosis. Tricuspid Valve The tricuspid valve is normal in structure. Mild [place] [address] 2 D/M-MODE ECHOCARDIOGRAM Name: AMANADAM ERWINROSIE Hurst Room: [facility]#: [id number] Admission: 08/09/20 Attend Phys: Pual Ham, Discharge: Date of : 42 Date of Service: 08/09/20 1232 Report #: [id number] Pulmonic Valve The pulmonary valve is normal in structure. Mild pulmonic regurgitation. Great Vessels The aortic root is normal in size. IVC is normal in size and collapses >50% with inspiration. Pericardium There is no pericardial effusion. <Conclusion> Mild concentric left ventricular hypertrophy. LVEF is 55-60%. The Aortic valve is sclerotic. <ELECTRONICALLY SIGNED> By: Roddy Pineda MD, FACC 08/09/20 1232 1232 1232 Roddy Pineda MD, FACC /INF
== END ==
LOC: M.CRD 10:00
PROVIDERS: ATTEND Internal Medicine Cardiovascular Disease
DX: I08.8 Other rheumatic multiple valve diseases (principal); I50.32 Chronic diastolic (congestive) heart failure

== ENCOUNTER 2021-01-02 13:43 | Inpatient (IN) | payer MEDICARE, OTHER ==
[~2021-01-02] VITALS: Ht 190.5 cm; Wt 131.5 kg
--- NOTE | ~2021-01-02 | H ---
[address] [address] HISTORY AND PHYSICAL Name: HARSHA NEWTON Room: [address] IN [facility].R.#: [id number] Admission: 01/02/21 Attend Phys: Doc Shahid MD Discharge: Date of : 42 Report #: [id number] THIS REPORT FOR: cc: Zabrina Curran MD, Kandice L. MD ~ [facility],Medical Records Staff For GI report, please see the Provation report in Perceptive 7 content. By: [id number] Records Staff [facility] /IRENE
[2021-01-02 13:50] VITALS: BP 133/70
[2021-01-02] MEDS ORDERED: LASIX 40 MG TAB40 MG PO (13:54)
[2021-01-02] MEDS ORDERED: OMEPRAZOLE 20 M20 M1 PO (13:55)
[2021-01-02 14:17] LABS: HEMOGLOBIN 11.5 gm/dL (14.0-18.0); NUCLEATED RBCS 0 /100WBC
[2021-01-02 14:23] LABS: RBC 3.84 mil/uL (4.50-6.00)
[2021-01-02 14:24] LABS: CREATININE 1.5 mg/dL (0.6-1.3); POTASSIUM 4.6 mmol/L (3.5-5.1)
[2021-01-02 14:25] LABS: HEMATOCRIT 34.4 % (42.0-52.0); MCH 29.9 pg (26.0-34.0); MCHC 33.3 g/dL (28.0-37.0); MCV 89.6 fL (80.0-100.0); PLATELET COUNT* 289 thou/uL (150-400); RDW-CV 14.5 % (10.5-14.5); WBC 7.8 thou/uL (4.0-11.0)
[2021-01-02 14:42] LABS: ALBUMIN 2.8 g/dL (3.4-5.0); TOTAL BILIRUBIN 13.8 mg/dL (<0.1-1.0); TOTAL PROTEIN 6.5 g/dL (6.4-8.2)
[2021-01-02 15:05] LABS: ABSOLUTE EOSINOPHILS 0.1 thou/uL (0.0-0.7); ABSOLUTE MONOCYTES 0.3 thou/uL (0.0-1.2); ABSOLUTE NEUTROPHILS 6.4 thou/uL (1.6-8.1); PLATELET ESTIMATE ADEQUATE
--- NOTE | 2021-01-02 16:23 | EKG ---
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1940 Requested By: Ant Hernandez Order Number: [id number] MD: Roddy Pineda Measurements Intervals [place] Rate: 77 P: -4 MN: 206 QRS: -23 QRSD: 89 T: -3 QT: 350 QTc: 397 Interpretive Statements Sinus rhythm Anterolateral infarct, old Compared to ECG 03/15/2020 04:58:30 Myocardial infarct finding now noted Electronically Signed On 01-02-2021 16:22:56 MEDICAL RECORD ADMINISTRATOR by Roddy Pineda [email or web address] <ELECTRONICALLY SIGNED> By: Roddy Pineda MD, [facility] 01/02/21 1622 1358 1358 Roddy Pineda MD, [facility] /EPI
[2021-01-02 18:51] VITALS: BP 117/75
[2021-01-03 06:44] LABS: CALCIUM 8.9 mg/dL (8.5-10.1); CREATININE 1.4 mg/dL (0.6-1.3); POTASSIUM 4.6 mmol/L (3.5-5.1)
[2021-01-03 06:56] LABS: HEMOGLOBIN 10.5 gm/dL (14.0-18.0); WBC 6.7 thou/uL (4.0-11.0)
[2021-01-03 06:59] LABS: HEMATOCRIT 31.1 % (42.0-52.0); MCH 29.9 pg (26.0-34.0); MCHC 33.7 g/dL (28.0-37.0); MCV 88.8 fL (80.0-100.0); MPV 8.8 fl. (7.2-11.1); NUCLEATED RBCS 0 /100WBC; PLATELET COUNT* 267 thou/uL (150-400); RDW-CV 14.6 % (10.5-14.5)
[2021-01-03 07:15] VITALS: BP 149/82
[2021-01-03 07:51] LABS: ABSOLUTE EOSINOPHILS 0.1 thou/uL (0.0-0.7); ABSOLUTE LYMPHOCYTES 1.5 thou/uL (0.8-5.3); ABSOLUTE MONOCYTES 0.1 thou/uL (0.0-1.2); ABSOLUTE NEUTROPHILS 4.9 thou/uL (1.6-8.1); HYPOCHROMASIA Occasional; PLATELET ESTIMATE ADEQUATE
[2021-01-03 07:53] LABS: LARGE PLATELETS OCCASIONAL
[2021-01-03 07:54] LABS: OVALOCYTES Occasional
[2021-01-03 15:57] VITALS: BP 122/76
[2021-01-03 20:00] VITALS: BP 132/78
[2021-01-04 06:08] LABS: HEMATOCRIT 31.4 % (42.0-52.0); HEMOGLOBIN 10.3 gm/dL (14.0-18.0); MCH 29.6 pg (26.0-34.0); MCHC 32.9 g/dL (28.0-37.0); MCV 89.8 fL (80.0-100.0); MPV 8.7 fl. (7.2-11.1); RBC 3.49 mil/uL (4.50-6.00); RDW-CV 14.7 % (10.5-14.5); WBC 6.6 thou/uL (4.0-11.0)
[2021-01-04 06:29] LABS: ALBUMIN 2.5 g/dL (3.4-5.0); CALCIUM 8.7 mg/dL (8.5-10.1); CREATININE 1.5 mg/dL (0.6-1.3); MAGNESIUM 1.7 mg/dL (1.8-2.4); POTASSIUM 4.5 mmol/L (3.5-5.1); TOTAL BILIRUBIN 15.6 mg/dL (<0.1-1.0); TOTAL PROTEIN 5.6 g/dL (6.4-8.2)
[2021-01-04 07:15] VITALS: BP 139/78
[2021-01-04 09:21] VITALS: BP 139/78
[2021-01-04 17:20] VITALS: BP 158/69
[2021-01-04 21:00] VITALS: BP 145/81
[2021-01-05] VITALS: BP 136/73
[2021-01-05 04:00] VITALS: BP 128/74
[2021-01-05 05:08] LABS: ALBUMIN 2.5 g/dL (3.4-5.0); CALCIUM 8.9 mg/dL (8.5-10.1); CREATININE 1.7 mg/dL (0.6-1.3); POTASSIUM 5.2 mmol/L (3.5-5.1); TOTAL BILIRUBIN 16.6 mg/dL (<0.1-1.0); TOTAL PROTEIN 6.1 g/dL (6.4-8.2)
[2021-01-05 05:22] LABS: ALBUMIN 2.4 g/dL (3.4-5.0); TOTAL BILIRUBIN 16.6 mg/dL (<0.1-1.0)
[2021-01-05 07:50] VITALS: BP 139/70
[2021-01-05 11:25] VITALS: BP 125/67
[2021-01-05 16:17] VITALS: BP 141/84
[2021-01-05 20:00] VITALS: BP 94/40
[2021-01-06 05:06] LABS: ALBUMIN 2.5 g/dL (3.4-5.0); CREATININE 1.7 mg/dL (0.6-1.3); DIRECT BILIRUBIN 15.2 mg/dL (<0.1-0.3); MAGNESIUM 1.7 mg/dL (1.8-2.4); POTASSIUM 4.7 mmol/L (3.5-5.1); TOTAL PROTEIN 5.9 g/dL (6.4-8.2)
[2021-01-06 07:40] VITALS: BP 121/65
[2021-01-06 16:13] VITALS: BP 93/50
[2021-01-06 20:50] VITALS: BP 135/83
[2021-01-07 05:59] LABS: ALBUMIN 2.7 g/dL (3.4-5.0); CALCIUM 9.7 mg/dL (8.5-10.1); CREATININE 1.9 mg/dL (0.6-1.3); MAGNESIUM 1.8 mg/dL (1.8-2.4); POTASSIUM 4.8 mmol/L (3.5-5.1); TOTAL BILIRUBIN 14.9 mg/dL (<0.1-1.0); TOTAL PROTEIN 6.2 g/dL (6.4-8.2)
[2021-01-07 08:15] VITALS: BP 122/65
[2021-01-07] MEDS ORDERED: PHENERGAN 25 MG25 M1 PO (10:21)
[2021-01-07] MEDS ORDERED: REGLAN 10 MG TA10 MG PO (10:21)
[2021-01-07] MEDS ORDERED: ELIQUIS5 MG PO (10:21)
[2021-01-07] MEDS ORDERED: HYDROCODON-ACE1 EAC7 PO ×2 (10:21)
[2021-01-07 12:50] VITALS: BP 122/65
[2021-01-07 13:35] VITALS: BP 122/65
--- NOTE | 2021-01-10 12:06 | PATH ---
[address] [address] PATHOLOGY RPT PROCEDURE Name: HARSHA NEWTON Room: [address] IN [facility].R.#: [id number] Admission: 01/02/21 Date of : 42 Discharge: 01/07/21 Report #: [id number] Path Case #: [id number] [facility] Accession Number: [id number] . 01 Material submitted: . PART A: bile duct - COMMON BILE DUCT BIOPSY 1 PART B: bile duct - COMMON BILE DUCT BIOPSY 2 . 01 Clinical history: . ERCP IN SURGERY EGD IN OR . 02 Diagnosis: A, B. Common bile duct biopsy #1 and biopsy #2: - Few atypical cells with background of abundant benign biliary ductal epithelial cells and blood. See comment. (GET:debbie; 01/09/2021) JACQUELIN 01/09/2021 1116 Local . 02 Comment: Specimens a and B reviewed with Dr. Brayden Kaur on 01/09/2021 who agrees with the diagnoses. (GET:debbie; 01/09/2021) . 02 Electronically signed: . Dom Elliott MD, Pathologist NPI- [id number] . 01 Gross description: . A. The specimen is received in formalin, labeled "Harsha Newton, common bile duct biopsy 1". Received is a moderate amount of blood coagulum admixed with pale dhillon possible tissue measuring 0.7 x 0.4 x 0.1 cm in aggregate dimensions. The specimen is filtered and entirely submitted in cassette A1 for serial multiple-step sections. . B. The specimen is received in formalin, labeled "Harsha Newton, common bile duct biopsy 2". Received is a slight amount of blood coagulum and mixed with pale dhillon possible tissue measuring 0.5 x 0.4 x 0.1 cm in aggregate dimensions. The specimen is filtered and entirely submitted in cassette B1 for serial multiple-step sections. ([facility]; 01/06/2021) QAC/QAC 01/09/2021 1114 Local . 02 Pathologist provided ICD-10: K83.8 . 02 CPT . 281024, [id number] [place] [address] PATHOLOGY RPT PROCEDURE Name: AMANADAM ERWINROSIE Hurst Room: [address] IN [facility].#: [id number] Admission: 01/02/21 Date of : 42 Discharge: 01/07/21 Report #: [id number] Path Case #: [id number] Specimen Comment: A courtesy copy of this report has been sent to [phone] Specimen Comment: Report sent to , / Performed at: [address], [place], [place] [id number] MD Abdiaziz Dinero MD Phone: [phone] Performed at: [facility] [address], [place], [place] [id number] MD Dom Elliott MD Phone: [phone]
== END 2021-01-07 13:39 | disposition hospice, home (50) | DRG 444 ==
LOC: M.ERS 13:43 → M.3W 17:51 → M.TBA-ER 17:51 → M.3W 19:00
PROVIDERS: Emergency Medicine; Internal Medicine; Internal Medicine Gastroenterology; Nurse Practitioner Adult Health; ADMIT Internal Medicine; ATTEND Internal Medicine
PROC: 0F798DZ Dilation of Common Bile Duct with Intraluminal Device, Via Natural or Artificial Opening Endoscopic (ICD-10-PCS; principal; 2021-01-04)
PROC: 0FB98ZX Excision of Common Bile Duct, Via Natural or Artificial Opening Endoscopic, Diagnostic (ICD-10-PCS; 2021-01-04)
DX: K83.1 Obstruction of bile duct (principal); E43 Unspecified severe protein-calorie malnutrition; I82.220 Acute embolism and thrombosis of inferior vena cava; I81 Portal vein thrombosis; C25.9 Malignant neoplasm of pancreas, unspecified; N17.9 Acute kidney failure, unspecified; J96.10 Chronic respiratory failure, unspecified whether with hypoxia or hypercapnia; I10 Essential (primary) hypertension; E80.7 Disorder of bilirubin metabolism, unspecified; R74.8 Abnormal levels of other serum enzymes; E11.9 Type 2 diabetes mellitus without complications; Z66 Do not resuscitate; Z20.822 Contact with and (suspected) exposure to COVID-19; Z79.899 Other long term (current) drug therapy; Z88.8 Allergy status to other drugs, medicaments and biological substances